=== PATIENT | female | born 1980 | race Two or more races ===

== ENCOUNTER 2024-05-11 22:56 | Emergency (ER) | payer OTHER ==
[~2024-05-11] VITALS: Ht 167.6 cm; Wt 65.8 kg
[2024-05-11] MEDS ORDERED: PEPCID AC20 MG PO (23:09)
[2024-05-11] MEDS ORDERED: PEPCID AC20 MG (23:09)
[2024-05-11] MEDS ORDERED: PROTONIX40 MG (23:09)
[2024-05-11] MEDS ORDERED: LEVSIN/SL0.125 MG (23:10)
[2024-05-11] MEDS ORDERED: DICY20TA (23:10)
[2024-05-12] MEDS ORDERED: FAMOTIDINE/PF 20 MG in 0.9 % SODIUM CHLORIDE 8 ML IV PUSH STA (00:30)
[2024-05-12] MEDS ORDERED: KETOROLAC TROMETHAMINE 30 MG VIAL ONE (00:42)
[2024-05-12] MEDS ORDERED: METHYLPREDNISOLONE SOD SUCC 125 MG VIAL ONE (00:43)
[2024-05-12] MEDS ORDERED: MAG HYDROX/ALUMINUM HYD/SIMETH 30 ML BLIST.PACK PO ONE ×2 (00:43→00:45)
[2024-05-12] MEDS ORDERED: FAMOtidine 200mg/20ml VIAL ONE (00:44)
[2024-05-12] MEDS ORDERED: METHYLPREDNISOLONE SOD SUCC 125 MG VIAL IV ONE (00:45)
[2024-05-12] MEDS ORDERED: SUCRALFATE 1 G TABLET PO ONE (00:45)
[2024-05-12] MEDS ORDERED: KETOROLAC TROMETHAMINE 30 MG VIAL IV ONE (00:45)
[2024-05-12 01:16] LABS: HEMATOCRIT 38.7 % (36.0-45.00); HEMOGLOBIN 12.9 g/dL (12.0-15.00); MEAN CELL VOLUME 85.5 fL (80.00-100.00); MEAN CORPUSCULAR HEMOGLOBIN 28.6 pg (27.00-32.0); MEAN CORPUSCULAR HGB CONC 33.4 g/dl (32.0-36.0); PLATELET COUNT 343 K/uL (150-450); RED BLOOD COUNT 4.53 M/uL (4.00-6.00); RED CELL DISTRIBUTION WIDTH 13.1 % (11.5-14.5)
[2024-05-12 02:07] LABS: ALBUMIN 3.9 gm/dL (3.4-5.0); BILIRUBIN TOTAL 0.29 mg/dL (0.3-1.2); CALCIUM 8.9 mg/dL (8.5-10.1); CREATININE SERUM 0.72 mg/dL (0.55-1.02); GFR 88.41; GLOBULINA 3.6 G/DL (2.4-3.5); POTASSIUM 4.35 mEq/L (3.5-5.1); TOTAL PROTEIN 7.5 gm/dL (6.4-8.2)
[2024-05-12] MEDS ORDERED: CARAFATE1 GM PO (02:24)
== END 2024-05-12 02:34 | disposition home or self-care (01) ==
LOC: ER 22:57
PROVIDERS: General Practice
DX: K29.70 Gastritis, unspecified, without bleeding (principal)

== ENCOUNTER 2024-07-02 09:37 | Emergency (ER) | payer OTHER ==
[~2024-07-02] VITALS: Ht 167.6 cm; Wt 63.5 kg
[~2024-07-02 09:37] MED LIST: CARAFATE1 GM PO; DICY20TA; LEVSIN/SL0.125 MG; PEPCID AC20 MG; PEPCID AC20 MG PO; PROTONIX40 MG
[2024-07-02] MEDS ORDERED: FAMOtidine 10 MG/ML (4ML VIAL) IV STA (10:57)
[2024-07-02] MEDS ORDERED: ONDANSETRON HCL 2 MG/ML VIAL IV ONE (11:00)
[2024-07-02] MEDS ORDERED: FAMOTIDINE/PF 20 MG/2 ML VIAL ONE (11:20)
[2024-07-02] MEDS ORDERED: ONDANSETRON HCL 2 MG/ML VIAL ONE ×2 (11:21)
[2024-07-02 11:41] LABS: PH,URINE 7.5 (5.0-8.0); URINE APPEARANCE Clear; URINE BILIRRUBIN Negative (NEGATIVE); URINE BLOOD Negative; URINE COLOR Yellow; URINE GLUCOSE Negative (NEGATIVE); URINE KETONE Negative (NEGATIVE); URINE LEUKOCYTE Negative; URINE NITRATE Negative; URINE PROTEIN Negative (NEGATIVE); URINE UROBILINOGEN 0.2 E.U./dl
[2024-07-02 11:42] LABS: HEMATOCRIT 38.1 % (36.0-45.00); MEAN CELL VOLUME 85.6 fL (80.00-100.00); MEAN CORPUSCULAR HEMOGLOBIN 29.3 pg (27.00-32.0); MEAN CORPUSCULAR HGB CONC 34.3 g/dl (32.0-36.0); PLATELET COUNT 380 K/uL (150-450); RED BLOOD COUNT 4.45 M/uL (4.00-6.00); RED CELL DISTRIBUTION WIDTH 13.5 % (11.5-14.5)
[2024-07-02 11:45] LABS: URINE BACTERIA 422.9 uL (0.0-1933); URINE EPITHELIAL CELLS 6.3 uL (0.0-38.8); URINE RBC 6.7 uL (0.0-20.8); URINE WBC 4.3 uL (0.0-23.2)
[2024-07-02 12:11] LABS: ALBUMIN 3.8 gm/dL (3.4-5.0); ALKALINE PHOSPHATASE 69 U/L (50-136); ALT/SGPT 30 U/L (12-78); AMYLASE 58 U/L (25-115); ANION GAP 9 (10.0-20.0); AST/SGOT 19 U/L (15-37); BILIRUBIN TOTAL 0.41 mg/dL (0.3-1.2); BILIRUBIN,CONJUGATED < 0.10 mg/dL (0.0-0.2); BILIRUBIN,UNCONJUGATED 0.31 mg/dL (0.0-0.6); BLOOD UREA NITROGEN 7 mg/dL (7-18); BUN CREA RATIO 10 (7.0-25.0); CALCIUM 9.2 mg/dL (8.5-10.1); CARBON DIOXIDE 24 mEq/L (21-32); CHLORIDE 112 mmol/L (98-107); CREATININE SERUM 0.69 mg/dL (0.55-1.02); GFR 92.86; GLUCOSE FASTING 115 mg/dL (65-100); OSMOLALITY SERUM 280 MOSM/KG (275-295); POTASSIUM 3.83 mEq/L (3.5-5.1); SODIUM 141 mmol/L (136-145); TOTAL PROTEIN 7.8 gm/dL (6.4-8.2)
== END 2024-07-02 17:35 | disposition home or self-care (01) ==
LOC: ER 09:39
PROVIDERS: General Practice
DX: K29.70 Gastritis, unspecified, without bleeding (principal)

== ENCOUNTER 2024-12-07 09:23 | Emergency (ER) | payer OTHER ==
[~2024-12-07] VITALS: Ht 165.1 cm; Wt 68.0 kg
[2024-12-07] MEDS ORDERED: KETOROLAC TROMETHAMINE 60 MG VIAL IM ONE ×2 (10:34→10:45)
== END 2024-12-07 11:56 | disposition home or self-care (01) ==
LOC: ER 09:25
DX: N64.4 Mastodynia (principal)